=== PATIENT | female | born 1975 | race Caucasian/White ===

== ENCOUNTER → 2020-12-01 | Outpatient (CLI) | payer OTHER | LOC: MRI 11-12 10:00 | DX: D49.2 Neoplasm of unspecified behavior of bone, soft tissue, and skin (principal) | CPT/HCPCS: 73720; A9577 ==

== ENCOUNTER → 2021-06-05 | Outpatient (CLI) | payer OTHER | LOC: KOH-I 11:04 | DX: M25.521 Pain in right elbow (principal); S56.511A Strain of other extensor muscle, fascia and tendon at forearm level, right arm, initial encounter | CPT/HCPCS: 73221 ==

== ENCOUNTER → 2021-06-27 | Outpatient (CLI) | payer OTHER ==
[2021-06-27 15:23] LABS: BUN/CREATININE RATIO 15 (0-10)
== END ==
LOC: NM 10:46
PROVIDERS: Internal Medicine
DX: E21.0 Primary hyperparathyroidism (principal); E03.9 Hypothyroidism, unspecified
CPT/HCPCS: 36415; 78070; 80069; 82330; 83970; 84443; A9500

== ENCOUNTER → 2021-08-27 | Outpatient (CLI) | payer OTHER ==
[~2021-08-27] MED LIST: ALLEGRA ALLERG180 MG PO; ASPIRIN EC81 MG PO; HYDROCODON-ACE1 EAC4 PO; IBU800 MG PO; IMITREX; KLONOPIN0.5 MG PO; LISINOPRIL20 MG PO; OMEPRAZOLE20 MG PO; PROBIOTIC1 EAC1 PO; VITAMIN D21250 MCG PO
[2021-08-27 12:29] LABS: BUN/CREATININE RATIO 22 (0-10)
== END ==
LOC: OPSV2 10:49
PROVIDERS: Orthopaedic Surgery
DX: Z01.818 Encounter for other preprocedural examination (principal); M25.521 Pain in right elbow; I10 Essential (primary) hypertension
CPT/HCPCS: 36415; 80048; 93005

== ENCOUNTER → 2021-09-06 | Day surgery (SDC) | payer OTHER ==
[~2021-09-06] VITALS: Ht 162.6 cm; Wt 101.6 kg
== END | disposition home or self-care (01) ==
LOC: OR 07:30
DX: M77.11 Lateral epicondylitis, right elbow (principal); I10 Essential (primary) hypertension; M19.90 Unspecified osteoarthritis, unspecified site; Z20.822 Contact with and (suspected) exposure to COVID-19; Z79.82 Long term (current) use of aspirin; Z90.710 Acquired absence of both cervix and uterus; Z90.49 Acquired absence of other specified parts of digestive tract
CPT/HCPCS: C1713; J0171; J0690; J1100; J2001; J2250; J2405; J2550; J2704; J2710; J2795; J3010; J7120

== ENCOUNTER → 2022-03-07 | Day surgery (SDC) | payer OTHER ==
[~2022-03-07] MED LIST changes: +ASPIRIN81 MG PO; +DRISDOL1250 MCG PO; +IBUPROFEN800 MG PO; +IMITREX25 MG PO; +KLONOPIN TAB 00.5 MG PO; +OMEPRAZOLE20 M2 PO; +PROBIOTIC; +STOOL SOFTNER; +WELLBUTRIN XL150 MG PO
== END | disposition home or self-care (01) ==
LOC: OR 07:59
DX: Z12.11 Encounter for screening for malignant neoplasm of colon (principal); K59.09 Other constipation; K66.0 Peritoneal adhesions (postprocedural) (postinfection); K63.89 Other specified diseases of intestine; M19.90 Unspecified osteoarthritis, unspecified site; K21.9 Gastro-esophageal reflux disease without esophagitis; I10 Essential (primary) hypertension; E78.00 Pure hypercholesterolemia, unspecified; E03.9 Hypothyroidism, unspecified; Z88.6 Allergy status to analgesic agent; Z79.82 Long term (current) use of aspirin
CPT/HCPCS: J2001; J2704